=== PATIENT | male | born 1930 | race Caucasian/White ===

== ENCOUNTER 2016-05-04 21:15 | Emergency (ER) | payer OTHER ==
--- NOTE | 2016-05-04 22:12 | ED EKG INTERP ---
EKG Interpretation - EKG Time of EKG reading by physician:: 21:34 EKG Read and Signed by:: Grzegorz Douglass EKG Interpretation (*Must complete 3 of following elements*): Abnormal (RBBB) Rate: 71 Rhythm: Sinus rhythm with 1st degree AV block Attestation - Scribe Verification/Attestation Scribe:: Cameron Alexander Acting as Scribe for:: Grzegorz Douglass Scribe documention review:: This chart was documented by a scribe and accurately reflects the service the provider performed and the decisions made by the provider.
[2016-05-04] MEDS ORDERED: NITROGLYCERIN SL PRN (23:07)
[2016-05-04] MEDS ORDERED: ASPIRIN PO STA (23:07)
[2016-05-04 23:15] LABS: MANUAL DIFF NEEDED? NO
--- NOTE | 2016-05-04 23:15 | PROVIDER DOCUMENTATION ---
HPI-Chest Pain - General Chief Complaint: Abdominal Pain Stated Complaint: abdominal pain Time Seen by Provider: 05/04/16 22:21 Source: patient Allergies/Adverse Reactions: Patient Allergies Allergy/AdvReac Type Severity Reaction Status Date / Time Cephalosporins Allergy ANAPHYLAXIS Verified 05/04/16 22:03 Penicillins AdvReac HIVES Verified 05/04/16 22:03 Home Medications: Home Medication List Medication Instructions Recorded Confirmed Last Taken Type Acetaminophen [Tylenol] 500 mg PO 4XDAY 05/04/16 05/04/16 05/04/16 09:00 History Carvedilol [Coreg] 12.5 mg PO BID 05/04/16 05/04/16 05/04/16 09:00 History Gabapentin [Neurontin] 300 mg PO 4XDAY 05/04/16 05/04/16 05/04/16 09:00 History Hydrocodone/APAP 7.5 mg/325 mg 7.5 mg PO 3-4XDAY PRN PRN 05/04/16 05/04/1605/04 15:00 History [[place]-7.5] Magnesium Oxide [[place]] 500 mg PO DAILY PRN PRN 05/04/16 05/04/16 Unknown History Polyethylene Glycol 3350 [Miralax] 17 gm PO BID PRN PRN 05/04/16 05/04/16 Unknown History - History of Present Illness-CP Nature of Presenting Problem: Pt is an 86 yom who presents to ER via EMS with CC of chest pain with onset of approximately 1430 today, so he took 1 norco 7.5 without relief. Pt reports that he had no relief by 0, so he called the on-call nurse for [employer] and was recommended to take an aspirin and nitro and call EMS. Pt also reports that he has had chronic GI pain and none of his doctor's have been able to find the source of his GI problems. Pt reports his chest pain as a "soreness" and his pain is alleviated when he passes gas. Location: reports: central Chest Pain Radiation: reports: no radiation Quality of Pain: reports: other (sore) Severity in ED: moderate Onset/Duration: this afternoon (1430) Timing: improving Modifying Factors: improves with: other (passing gas) Associated Symptoms: reports: abdominal pain, fatigue, nausea, weakness. denies : back pain, diaphoresis, dizziness, edema, fever/chills, headache, heartburn, rash, shortness of breath, swelling/lump in chest, syncope, vomiting Nitro Today/Relief: 0.4 mg x 1, provided at home Aspirin Treatment Today: provided at home (unknown dosage) Review of Systems - Adult - REVIEW OF SYSTEMS - ADULT Constitutional: reports: castillo. denies: chills, fever, night sweats, weight gain, weight loss Eyes: reports: no symptoms reported Ears, Nose, Mouth & Throat: reports: no symptoms reported Cardiovascular: reports: chest pain. denies: edema, heart murmur, irregular heart rate, orthopnea, palpitations, poor circulation, PND, syncope Respiratory: reports: chronic cough. denies: cough, dyspnea on exertion, excessive sputum production, hemoptysis, pleurisy, shortness of breath, wheezing Gastrointestinal: reports: abdominal pain, nausea. denies: hematemesis, constipation, diarrhea, difficulty swallowing, frequent heartburn, poor appetite , rectal bleeding, vomiting Genitourinary: denies: dysuria, discharge, frequency, flank pain, hematuria, urinary retention, urgency Musculoskeletal: denies: bone pain, back pain, frequent leg cramps, joint pain, joint swelling, muscle aches, muscle weakness, neck pain Integumentary: reports: no symptoms reported Neurological: reports: no symptoms reported Psychiatric: reports: no symptoms reported Endocrine: reports: no symptoms reported Hematologic/Lymphatic: reports: no symptoms reported Allergic/Immunologic: reports: no symptoms reported All Other Systems: Reviewed and Negative Past History - Adult - PAST MEDICAL HISTORY-ADULT Review of Records: reports: Nursing Assessment Review, Medications Reviewed Respiratory: reports: COPD - IMMUNIZATION STATUS Childhood Immunizations: See Nurse Assessment Flu Vaccine: See Nurse Assessment Physical Exam-General - PHYSICAL EXAM-ADULT Initial Vital Signs Reviewed: Yes - CONSTITUTIONAL General Appearance: appears well, alert, mild distress. negative: no apparent distress, moderate distress, severe distress, cachetic, obese, thin, anxious, lethargic, slow to respond, obtunded, combative - NECK Neck: non-tender, full range of motion, supple. negative: C-spine tenderness, limited range of motion, lymphadenopathy - CARDIOVASCULAR Cardiovascular: normal peripheral pulses, regular rate, rhythm. negative: bradycardia, tachycardia, irregularly irregular - GASTROINTESTINAL (ABDOMEN) Abdominal Exam: normal bowel sounds, soft, tenderness (generalized, but more prominent in LLQ). negative: non tender, abnormal bowel sounds, mass - MUSCULOSKELETAL Back Exam: no CVA tenderness, no vertebral tenderness. negative: CVA tenderness , decreased range of motion, muscle spasm, swelling, vertebral tenderness - NEUROLOGIC Neurologic: grossly normal, no motor/sensory deficits. negative: facial droop, focal weakness, motor weakness, sensory deficit - PSYCHIATRIC Psych/Mental Status: normal mood/affect, normal thought content, normal thought process, oriented x 3. negative: disoriented x 3, anxious, disheveled, depressed affect, paranoid, tearful Progress - PLAN OF CARE/RESULTS Progress/Plan/Lab Results: Vital Signs - 24 hr 05/04/16 05/05/16 21:52 01:58 Temperature 97.5 F L Pulse Rate 64 83 Respiratory 18 16 Rate Blood Pressure 201/101 165/94 O2 Sat by Pulse 95 91 L Oximetry Orders Category Date Time Status Cardiac Monitoring DIRECTED Care 05/04/16 23:08 Active Saline Loc NOW Care 05/04/16 23:08 Active CHEST-PORTABLE [RAD] Stat Exams 05/04/16 23:08 Taken CBC WITH ELECTRONIC DIFF [HEME] Stat Lab 05/04/16 21:51 Completed CK PROFILE [SP CHEM] Stat Lab 05/04/16 21:51 Completed COMPREHENSIVE METABOLIC PANEL [CHEM] Stat Lab 05/04/16 21:51 Completed D-DIMER [CHEM] Stat Lab 05/04/16 21:51 Completed MAGNESIUM [CHEM] Stat Lab 05/04/16 21:51 Completed PRO B-NATRIURETIC PEPTIDE Stat Lab 05/04/16 21:51 Completed PROTIME WITH INR [COAG] Stat Lab 05/04/16 21:51 Completed PTT [COAG] Stat Lab 05/04/16 21:51 Completed TROPONIN T Stat Lab 05/04/16 21:51 Completed TROPONIN T Stat Lab 05/05/16 01:05 Completed UA NIMS W/REFLEX CULT [URINALYSIS] Stat Lab 05/04/16 23:25 Completed Aspirin Med 05/04/16 23:07 Discontinued 325 mg PO STAT STA Nitroglycerin Sl [Nitroglycerin] Med 05/04/16 23:07 Active 0.4 mg SL Q5M PRN PRN EKG [EKG] Stat Ther 05/04/16 21:33 Ordered EKG [EKG] Stat Ther 05/04/16 23:08 Ordered Laboratory Tests 05/04/16 05/04/16 05/04/16 21:50 21:51 21:51 WBC 9.39 RBC 4.79 Hgb 15.6 Hct 44.9 MCV 93.7 MCH 32.6 H MCHC 34.7 RDW Std Deviation 12.7 Plt Count 161 MPV 9.7 Immature Gran % (Auto) 0.4 Neut % (Auto) 57.6 Lymph % (Auto) 29.0 [place] % (Auto) 10.5 H Eos % (Auto) 2.2 Baso % (Auto) 0.3 Immature Gran # (Auto) 0.04 Neut # (Auto) 5.40 Lymph # (Auto) 2.72 [place] # (Auto) 0.99 H Eos # (Auto) 0.21 Baso # (Auto) 0.03 PT INR PTT (Actin FS) D-Dimer Sodium 138 Potassium 4.5 Chloride 100 Carbon Dioxide 24 L Anion Gap 14 BUN 19 Creatinine 1.2 Estimated GFR/1.73 m2 57 BUN/Creatinine Ratio 16 Glucose 105 H POC Glucose 109 H Calculated Osmolality 278 Calcium 8.9 Magnesium 2.1 Total Bilirubin 0.40 AST 19 ALT 16 Alkaline Phosphatase 93 Creatine Kinase 38 Troponin T [id number] Pept Total Protein 7.1 Albumin 4.1 Globulin 3.0 Albumin/Globulin Ratio 1.4 Urine Source Urine Color Urine Turbidity Urine pH Ur Specific [place] Urine Protein Ur Glucose (Stick) Ur Ketones (Stick) Urine Blood Urine Nitrite Urine Bilirubin Urobilinogen Dipstick Urine Leukocytes Urine WBC (Auto) Urine RBC (Auto) U Epithel Cells (Auto) Urine Bacteria (Auto) 05/04/16 05/04/16 05/04/16 21:51 21:51 21:51 WBC RBC Hgb Hct MCV MCH MCHC RDW Std Deviation Plt Count MPV Immature Gran % (Auto) Neut % (Auto) Lymph % (Auto) [place] % (Auto) Eos % (Auto) Baso % (Auto) Immature Gran # (Auto) Neut # (Auto) Lymph # (Auto) [place] # (Auto) Eos # (Auto) Baso # (Auto) PT 10.6 INR 1.00 PTT (Actin FS) 27.8 D-Dimer 1.59 H Sodium Potassium Chloride Carbon Dioxide Anion Gap BUN Creatinine Estimated GFR/1.73 m2 BUN/Creatinine Ratio Glucose POC Glucose Calculated Osmolality Calcium Magnesium Total Bilirubin AST ALT Alkaline Phosphatase Creatine Kinase Troponin T [id number] Pept 130 Total Protein Albumin Globulin Albumin/Globulin Ratio Urine Source Urine Color Urine Turbidity Urine pH Ur Specific [place] Urine Protein Ur Glucose (Stick) Ur Ketones (Stick) Urine Blood Urine Nitrite Urine Bilirubin Urobilinogen Dipstick Urine Leukocytes Urine WBC (Auto) Urine RBC (Auto) U Epithel Cells (Auto) Urine Bacteria (Auto) 05/04/16 05/04/16 05/05/16 21:51 23:25 01:05 WBC RBC Hgb Hct MCV MCH MCHC RDW Std Deviation Plt Count MPV Immature Gran % (Auto) Neut % (Auto) Lymph % (Auto) [place] % (Auto) Eos % (Auto) Baso % (Auto) Immature Gran # (Auto) Neut # (Auto) Lymph # (Auto) [place] # (Auto) Eos # (Auto) Baso # (Auto) PT INR PTT (Actin FS) D-Dimer Sodium Potassium Chloride Carbon Dioxide Anion Gap BUN Creatinine Estimated GFR/1.73 m2 BUN/Creatinine Ratio Glucose POC Glucose Calculated Osmolality Calcium Magnesium Total Bilirubin AST ALT Alkaline Phosphatase Creatine Kinase Troponin T < 0.010 < 0.010 [id number] Pept Total Protein Albumin Globulin Albumin/Globulin Ratio Urine Source CLEAN CATCH Urine Color YELLOW Urine Turbidity CLEAR Urine pH 6.5 Ur Specific [place] 1.014 Urine Protein NEGATIVE Ur Glucose (Stick) NEGATIVE Ur Ketones (Stick) NEGATIVE Urine Blood NEGATIVE Urine Nitrite NEGATIVE Urine Bilirubin NEGATIVE Urobilinogen Dipstick NORMAL Urine Leukocytes NEGATIVE Urine WBC (Auto) <10 Urine RBC (Auto) <10 U Epithel Cells (Auto) <10 Urine Bacteria (Auto) NEGATIVE - XRAY 1 XRAY: Bilateral XRAY Study: Chest Impression: See EMR Report Comparison with other Films: no changes (No changes from 04/30/2011) XRAY Interpretation: Normal - unchanged from 04/30/2011 Departure - Departure Time of Disposition Order: 02:03 DIAGNOSIS: Abdominal pain of unknown cause Chest pain Qualifiers: Chest pain type: unspecified Qualified Code(s): R07.9 - Chest pain, unspecified Disposition: HOME 01 Certified Medical Emergency: Emergent Condition: Stable Additional Instructions: ED Follow Up Instructions: You have been treated by a care provider in the Emergency Department. These instructions are being provided to you so you can have an understanding of how to care for yourself upon discharge. Upon discharge from the Emergency Department, you are responsible for making arrangements for follow-up care by a physician of your choice. Take all prescribed medications as directed. Return to the Emergency Department immediately for any new or worsening symptoms. You may call the Physician Referral phone number at [phone] to obtain a list of Physicians who are taking new patients. Referrals: Garrick Nath MD [Primary Care Provider] - Attestation - Scribe Verification/Attestation Scribe:: Cameron Alexander Acting as Scribe for:: Grzegorz Douglass Scribe documention review:: This chart was documented by a scribe and accurately reflects the service the provider performed and the decisions made by the provider.
[2016-05-04 23:21] LABS: BASO% 0.3 % (0.0-0.8); EOS# 0.21 X1000 (0.0-0.7); EOS% 2.2 % (0.0-10.0); HEMATOCRIT 44.9 % (42.0-52.0); HEMOGLOBIN 15.6 g/dL (14.0-18.0); IMM GRAN# 0.04 X1000 (0.0-0.04); IMM GRAN% 0.4 % (0.0-0.5); LYMPH# 2.72 X1000 (1.2-3.4); MCH 32.6 PG (27-31); MCHC 34.7 g/dL (33-37); MCV 93.7 FL (81-99); MONO# 0.99 X1000 (0.11-0.59); MONO% 10.5 % (1.7-9.3); MPV 9.7 FL (7.4-10.4); NEUT% 57.6 % (42.2-75.2); PLT 161 X1000 (130-400); RBC 4.79 XMIL (4.7-6.1)
[2016-05-04 23:30] LABS: ALBUMIN 4.1 g/dL (3.5-5.0); CALCIUM 8.9 mg/dL (8.8-10.2); MAGNESIUM 2.1 mg/dL (1.5-2.7); POTASSIUM 4.5 mmol/L (3.5-5.1); TOTAL BILIRUBIN 0.4 mg/dL (0.20-1.00); TOTAL PROTEIN 7.1 g/dL (6.3-8.3)
[2016-05-04 23:34] LABS: PROTIME 10.6 Seconds (9.2-11.7); PTT 27.8 Seconds (22.0-36.0)
[2016-05-04 23:39] LABS: URINE CULTURE NEEDED? NO; URINE MICRO REVIEW NEEDED? NO; URINE SOURCE CLEAN CATCH
[2016-05-04 23:41] LABS: BILIRUBIN URINE NEGATIVE (NEGATIVE); BLOOD URINE NEGATIVE (NEGATIVE); COLOR YELLOW; GLUCOSE URINE NEGATIVE (NEGATIVE); LEUKOCYTES URINE NEGATIVE (NEGATIVE); NITRITE URINE NEGATIVE (NEGATIVE); PH URINE 6.5; PROTEIN URINE NEGATIVE (NEGATIVE); SP GRAVITY URINE 1.014; TURBIDITY URINE CLEAR (CLEAR); UR EPITHELIAL CELLS <10 /HPF (<10); URINE BACTERIA NEGATIVE /HPF; URINE RBC <10 /HPF (<10); URINE WBC <10 /HPF (<10); UROBILINOGEN URINE NORMAL (NORMAL)
[2016-05-05 02:00] VITALS: BP 165/94
--- NOTE | 2016-05-05 07:43 | Diag Imaging Result Document ---
PROCEDURE NAME: CHEST-PORTABLE - 05/04/2016 PORTABLE CHEST: COMPARISON: Compared to 04/30/2011. FINDINGS: Sternal wires are present. The heart is not enlarged. The vessels are not distended. Minimal increased markings in the lower lungs. No pleural effusions identified. IMPRESSION: Questionable tiny basilar infiltrates. Followup PA and lateral recommended.
--- NOTE | 2016-05-06 09:28 | EKG Report ---
Test Performed on : 05/04/2016 9:34:00 PM Test Reason : CP Blood Pressure : / mmHG Vent. Rate : 071 BPM Atrial Rate : 071 BPM P-R Int : 224 ms QRS Dur : 134 ms QT Int : 418 ms P-R-T Axes : 072 065 052 degrees QTc Int : 454 ms Sinus rhythm. with 1st degree AV block. Right bundle branch block Abnormal ECG When compared with ECG of 30-APR-2011 22:30, No significant change was found Unconfirmed Result
== END 2016-05-05 02:32 | disposition home or self-care (01) ==
LOC: ED 21:15
DX: R10.9 Unspecified abdominal pain (principal); R94.31 Abnormal electrocardiogram [ECG] [EKG]; R07.89 Other chest pain; R53.83 Other fatigue; R11.0 Nausea; R53.1 Weakness; R05 Cough; R10.817 Generalized abdominal tenderness; Z79.899 Other long term (current) drug therapy; R10.814 Left lower quadrant abdominal tenderness; J44.9 Chronic obstructive pulmonary disease, unspecified
CPT/HCPCS: 71010; 80053; 81001; 82550; 82948; 83735; 83880; 84484; 85025; 85379; 85610; 85730; 93005